=== PATIENT | male | born 1960 | race Two or more races ===

== ENCOUNTER 2017-03-07 18:43 | Inpatient (IN) | payer MEDICAID ==
[~2017-03-07] VITALS: Ht 165.1 cm; Wt 86.1 kg
[2017-03-07 20:05] LABS: Basophils # (auto) 0 uL; Basophils % (auto) 0.8 % (0.0-2.0); Eosinophils # (auto) 0.1 uL; Eosinophils % (auto) 1.4 % (0.0-7.0); Hematocrit 39.9 % (41.0-53.0); Hemoglobin 13.5 g/dL (13.5-17.5); Lymphocytes # (auto) 1.2 uL; Lymphocytes % (auto) 26.8 % (10.0-50.0); Mean Corpuscular Hemoglobin 32.2 pg (28.0-32.0); Mean Corpuscular Hgb Conc. 33.9 g/dL (32.0-36.0); Mean Platelet Volume 8.1 fL (6.9-10.8); Monocytes # (auto) 0.5 uL; Neutrophils # (auto) 2.6 uL; Nucleated Red Blood Cells % 0.1 %; Platelet Count (auto) 161 10^3/uL (140-450); Red Cell Distribution Width 12.7 % (11.8-14.3); White Blood Cell 4.3 10^3/uL (4.4-10.8)
[2017-03-07 20:06] LABS: BUN/Creatinine Ratio 9.5; Calcium 8.3 mg/dL (8.5-10.1); Potassium 4.3 mmol/L (3.5-5.1)
[2017-03-08] MEDS ORDERED: SODIUM CHLORIDE 0.9% 1,000 ML IV ONE (01:30)
[2017-03-08] MEDS ORDERED: VANCOMYCIN 1GM/250ML D5W 250 ML IV ONE (06:15)
[2017-03-08] MEDS ORDERED: cefTRIAXone 1GM/50ML D5W 50 ML IV ONE (06:15)
[2017-03-08] MEDS ORDERED: TEMAZEPAM 15 MG CAP PO PRN (07:30)
[2017-03-08] MEDS ORDERED: DEXTROSE (50%) 50ML SYRG IV PRN (07:30)
[2017-03-08] MEDS ORDERED: ACETAMINOPHEN 325 MG TAB PO PRN (07:30)
[2017-03-08] MEDS ORDERED: ONDANSETRON HCL 4 MG/2 ML VIAL IV PRN (07:30)
[2017-03-08] MEDS: ACCU-CHEK COMFORT CURVE STRIP VI SCH ×4 (08:19→20:41)
[2017-03-08] MEDS: InsuLIN REG 1unit/0.01ml Soln (100units/ml) SC SCH ×4 (08:26→20:41)
[2017-03-08] MEDS: cefTRIAXone 1GM/50ML D5W 50 ML IV SCH (09:00)
[2017-03-08] MEDS ORDERED: SULFAMETHOX W/TRIMETH(800/160MG) DS TAB PO SCH (10:00)
[2017-03-08 10:21] VITALS: BP 157/94
[2017-03-08] MEDS: ENOXAPARIN SOD 40 MG/0.4 ML SYRINGE SC SCH (12:16)
[2017-03-08] MEDS: HYDROcodone-ACET 5/325MG TAB PO PRN ×2 (12:16→20:41)
[2017-03-08] MEDS: FAMOTIDINE 20 MG TAB PO SCH ×2 (12:16→21:31)
[2017-03-08 13:00] VITALS: BP 125/88
[2017-03-08 16:36] VITALS: BP 154/98
[2017-03-08 19:08] LABS: INR 1.11 (0.9-1.15); Prothrombin Time 12.1 sec (9.37-12.3)
[2017-03-08 22:00] VITALS: BP 119/78
[2017-03-09] MEDS: InsuLIN REG 1unit/0.01ml Soln (100units/ml) SC SCH ×5 (00:29→16:43)
[2017-03-09] MEDS: ACCU-CHEK COMFORT CURVE STRIP VI SCH ×5 (00:29→16:42)
[2017-03-09] MEDS: HYDROcodone-ACET 5/325MG TAB PO PRN ×2 (00:30→11:43)
[2017-03-09 05:00] VITALS: BP 125/87
[2017-03-09 06:36] LABS: Basophils # (auto) 0 uL; Basophils % (auto) 0.3 % (0.0-2.0); Eosinophils # (auto) 0.1 uL; Eosinophils % (auto) 1.7 % (0.0-7.0); Hematocrit 34.8 % (41.0-53.0); Lymphocytes # (auto) 1.4 uL; Lymphocytes % (auto) 36.1 % (10.0-50.0); Mean Corpuscular Hemoglobin 32.7 pg (28.0-32.0); Mean Corpuscular Hgb Conc. 34.3 g/dL (32.0-36.0); Mean Corpuscular Volume 95.2 fL (80.0-100.0); Mean Platelet Volume 8.8 fL (6.9-10.8); Monocytes # (auto) 0.4 uL; Monocytes % (auto) 11.4 % (0.0-12.0); Neutrophils # (auto) 1.9 uL; Neutrophils % (auto) 50.5 % (37.0-80.0); Nucleated Red Blood Cells % 0.1 %; Platelet Count (auto) 107 10^3/uL (140-450); Red Cell Distribution Width 12.7 % (11.8-14.3); White Blood Cell 3.9 10^3/uL (4.4-10.8)
[2017-03-09 06:59] LABS: Albumin 2.7 g/dL (3.4-5.0); BUN/Creatinine Ratio 17.2; Calcium 7.9 mg/dL (8.5-10.1); Potassium 4.5 mmol/L (3.5-5.1)
[2017-03-09 07:02] LABS: Bilirubin, Total 0.7 mg/dL (0.2-1.0)
[2017-03-09] MEDS: FAMOTIDINE 20 MG TAB PO SCH (08:51)
[2017-03-09] MEDS: ENOXAPARIN SOD 40 MG/0.4 ML SYRINGE SC SCH (08:51)
[2017-03-09] MEDS: cefTRIAXone 1GM/50ML D5W 50 ML IV SCH (08:52)
[2017-03-09 09:00] VITALS: BP 112/77
[2017-03-09 13:00] VITALS: BP 116/72
== END 2017-03-09 15:44 | disposition home or self-care (01) | DRG 380 ==
LOC: ER 18:51 → OVERFLOW 18:52 → EAST 03-08 10:02
PROVIDERS: ADMIT Nurse Practitioner; ATTEND Internal Medicine
DX: E11.621 Type 2 diabetes mellitus with foot ulcer (principal); L97.519 Non-pressure chronic ulcer of other part of right foot with unspecified severity; E44.0 Moderate protein-calorie malnutrition; E11.65 Type 2 diabetes mellitus with hyperglycemia; E87.1 Hypo-osmolality and hyponatremia; L03.115 Cellulitis of right lower limb; I10 Essential (primary) hypertension; G47.00 Insomnia, unspecified; E86.0 Dehydration; Z53.29 Procedure and treatment not carried out because of patient's decision for other reasons; Z68.31 Body mass index [BMI] 31.0-31.9, adult; Z82.3 Family history of stroke; Z83.3 Family history of diabetes mellitus; Z82.49 Family history of ischemic heart disease and other diseases of the circulatory system
CPT/HCPCS: 36415; 73630; 73700; 80048; 80053; 82962; 83036; 85025; 85610; 87040; 87205; 96361; 96365; 96367; J0696; J1815